=== PATIENT | male | born 1970 | race African-American/Black ===

== ENCOUNTER 2018-03-20 09:29 | Emergency (ER) | payer OTHER ==
[~2018-03-20] VITALS: Ht 172.7 cm; Wt 80.3 kg
[2018-03-20 09:30] VITALS: Ht 172.7 cm; Wt 80.3 kg
[2018-03-20 12:15] VITALS: BP 118/64
== END 2018-03-20 12:15 | disposition home or self-care (01) ==
LOC: ED 09:29
DX: D32.0 Benign neoplasm of cerebral meninges (principal); R56.9 Unspecified convulsions; K21.9 Gastro-esophageal reflux disease without esophagitis; Z88.8 Allergy status to other drugs, medicaments and biological substances; Z91.010 Allergy to peanuts